=== PATIENT | male | born 1985 | race African-American/Black ===

== ENCOUNTER 2021-05-02 16:38 | Emergency (ER) | payer OTHER ==
[~2021-05-02] VITALS: Ht 185.4 cm; Wt 85.0 kg
[2021-05-02 20:20] VITALS: BP 120/77
== END 2021-05-02 20:30 ==
LOC: ER 16:38
DX: T40.2X1A Poisoning by other opioids, accidental (unintentional), initial encounter (principal); Y92.143 Cell of prison as the place of occurrence of the external cause
CPT/HCPCS: 99283